=== PATIENT | female | born 1980 | race Caucasian/White ===

== ENCOUNTER 2016-10-02 10:43 | Emergency (ER) | payer MEDICAID ==
[2016-10-02 10:53] VITALS: TEMP 98.1; BMI 43.8
--- NOTE | 2016-10-02 11:24 | EDPRACDOC ---
- General Information Chief Complaint: Flu-Like Symptoms Stated Complaint: VOMITING/ BODY ACHES Time Seen by Provider: 10/02/16 11:02 Information Source: Patient Home Medications: Home Medications Hydrocodone Bit/Acetaminophen [Herreid 10-325 Tablet] 1 each PO Q8H PRN 10/02/16 Sulfamethoxazole/Trimethoprim [Bactrim Ds Tablet] 1 tab PO BID #10 tab 10/02/16 Allergies/Adverse Reactions: Allergies Allergy/AdvReac Type Severity Reaction Status Date / Time No Known Allergies Allergy Verified 10/02/16 10:53 - History of Present Illness Onset: SEVERAL DAYS HPI: BODY ACHES, COUGH, N/V. SUBJECTIVE FEVER. DAUGHTER WITH STREP. TOOK SOME OTC COLD MEDICINE WITHOUT RELIEF. (DAYQUIL) ED Past Medical History - History Reviewed Yes Nurses notes reviewed and agree except as marked - Patient Medical History Cardiac History: Reports: Hypertension (OFF MEDS) Psychological History: Reports: Depression (During first /after) Systemic History: Reports: Diabetes (PT REPROTS "BORDERLINE"). Denies: Cancer Surgical History: Reports: Other (CSXN, ELBOW, KNEE) - Family Medical History Reports: Hypertension (DAD, BROTHER), Diabetes (DAD, BROTHER), Stroke (DAD), Cardiac Disorders (DAD). Denies: Cancer - Social Medical History Smoking Status: Former smoker EDM Review of Systems - Review of Systems ROS Negative Except as Marked: Yes All systems reviewed and were negative except as marked Respiratory: Cough Cardiovascular: No Symptoms Reported Gastrointestinal: Nausea, Vomiting. negative: Pain Genitourinary: No Symptoms Reported - Physical Exam Constitutional: Alert (Awake), No apparent distress Oriented to: Time, Person, Place Last recorded Vital Signs: Last Vital Signs Temp 98.1 F 10/02/16 10:50 Pulse 102 10/02/16 10:50 Resp 20 10/02/16 10:50 BP 132/63 10/02/16 10:50 Pulse Ox 95 10/02/16 10:50 Oxygen Pulse Oxygen Saturation 95 O2 Device Oxygen Flow Rate Fraction of Inspired Oxygen ( FIO2) - HEENT Head: Normal ( normocephalic) Eye Exam: Normal (PERRL, EOMI, Sclera white) Oropharynx: Normal (Pharynx:Moist without exudate,Gums-no swelling) Nose: No Symptoms Reported (septum midline) Neck: Normal (FROM, trachea at midline) - Respiratory/Cardiovascular Respiratory: Normal - CTA (BBS clear to auscultation without adventitious sounds ) Cardiovascular: Normal (RRR without murmur, gallop or rub) - GI Auscultation: Normal (NABS) Palpation: Normal (Soft,No rebound or guarding, non distended) Tenderness: Non tender Valdez's Sign: Negative - Musculoskeletal Back: Normal (Non-Tender) Extremities: Normal (Normal tone, Pulses 2+ No cyanosis or edema, FROM) - Integumentary Skin: Normal, Warm, Dry Lymphatics: Normal (no adenopathy) - Neurologic Memory Impaired: Normal Motor Function: Normal (Normal tone, Pulses 2+ No cyanosis or edema, FROM) Cranial Nerve: Normal (CN II-X11 intact sensation, strength 5/5) Cerebellar: Normal Mood Description: Normal Perception: Normal Decision Time to Discharge: 12:08 - Departure Yes I personally saw and evaluated the patient. Disposition: Home Condition: Stable Final Diagnosis: UTI (urinary tract infection) Qualifiers: Urinary tract infection type: acute cystitis Hematuria presence: with hematuria Qualified Code(s): N30.01 - Acute cystitis with hematuria Upper respiratory infection Qualifiers: URI type: unspecified viral URI Qualified Code(s): J06.9 - Acute upper respiratory infection, unspecified; B97.89 - Other viral agents as the cause of diseases classified elsewhere Instructions: Urinary Tract Infection in Women (ED), Upper Respiratory Infection (ED) Education/Counseling Given To: Patient Education/Counseling Given Regarding: Diagnosis Referrals: Ronald Munguia MD [Primary Care Provider] - One Week Prescriptions: Sulfamethoxazole/Trimethoprim [Bactrim Ds Tablet] 1 tab PO BID #10 tab
[2016-10-02 11:47] LABS: RBC/URINE 30-40 (0-5); WBC/URINE TNTC (0-5)
[2016-10-02 11:48] LABS: LEUKOCYTES/URINE 2+ (NEGATIVE); NITRITE/URINE NEG (NEGATIVE); URINE OCCULT BLOOD 1+ (NEG/TRACE)
[2016-10-02 12:12] VITALS: BP 160/84; PULSE 93
--- NOTE | 2016-10-02 13:04 | DIRPT ---
CLINICAL DATA: Cough and congestion for 3 days EXAM: CHEST - 2 VIEW COMPARISON: 12/12/2009 FINDINGS: The heart size and mediastinal contours are within normal limits. Both lungs are clear. The visualized skeletal structures are unremarkable. IMPRESSION: No active disease. Electronically Signed By: Gustavo Alvarez M.D. On: 10/02/2016 13:01
== END 2016-10-02 12:34 | disposition home or self-care (01) ==
LOC: ED 10:43
DX: N30.01 Acute cystitis with hematuria (principal); J06.9 Acute upper respiratory infection, unspecified
CPT/HCPCS: 71020; 81001; 81025; 87086; 87880; 99282